=== PATIENT | female | born 1965 | race Caucasian/White ===

== ENCOUNTER 2017-06-10 06:52 | Day surgery (SDC) | payer BC, OTHER ==
[2017-06-09 13:18] VITALS: BMI 28.3
[2017-06-10] MEDS ORDERED: LIDOCAINE HCL 2% JELLY 10 ML CARTRIDGE ONE (08:58)
[2017-06-10 09:05] VITALS: TEMP 97.9
[2017-06-10] MEDS ORDERED: PROPOFOL 20 ML ONE ×7 (09:10→09:12)
[2017-06-10 09:49] VITALS: BP 110/67; PULSE 70
--- NOTE | 2017-06-11 12:55 | PATH ---
Surgical Pathology Report Patient Name: WENDIE BRIGGS [facility]. Rec. #: [id number] /Age/Gender: 1965 (Age: 51) / F Account: [id number] Location: [facility]-ENDOSCOPY Taken: 06/10/2017 Received: 06/10/2017 Reported: 06/11/2017 Physicians: Vidal Rees M.D. Specimen(s) Received TRANSVERSE COLON POLYP Clinical History Rectal bleeding Colon polyp/internal hemorrhoids Final Diagnosis COLON, TRANSVERSE, COLD SNARE POLYPECTOMY: TUBULAR ADENOMA. Comment: Recommend correlation with clinical findings and follow up as clinically indicated. Electronically Signed Fidencio Smalls M.D. Gross Description Received in formalin, labeled "cold snare transverse colon polyp" are 2 kinney, irregular portions of soft tissue measuring 0.2-0.4 cm. in greatest dimension. The specimens are submitted in toto in one cassette. [facility]/06/10/2017 [facility]/06/10/2017
== END 2017-06-10 09:57 | disposition home or self-care (01) ==
LOC: JASU-ENDO 06:52
PROVIDERS: ATTEND Internal Medicine Gastroenterology
PROC: 06LY4CC Occlusion of Hemorrhoidal Plexus with Extraluminal Device, Percutaneous Endoscopic Approach (ICD-10-PCS; 2017-06-10)
PROC: 0DBL8ZX Excision of Transverse Colon, Via Natural or Artificial Opening Endoscopic, Diagnostic (ICD-10-PCS; 2017-06-10)
PROC: 0W3P8ZZ Control Bleeding in Gastrointestinal Tract, Via Natural or Artificial Opening Endoscopic (ICD-10-PCS; principal; 2017-06-10 09:00)
DX: K64.8 Other hemorrhoids (principal); D12.3 Benign neoplasm of transverse colon
CPT/HCPCS: 84703; 88305-TC

== ENCOUNTER 2020-07-04 04:58 | Day surgery (SDC) | payer BC, OTHER ==
[2020-07-03 12:41] VITALS: BMI 29.0
[2020-07-04] MEDS ORDERED: LIDOCAINE HCL 2% JELLY 10 ML CARTRIDGE ONE (08:19)
[2020-07-04] MEDS ORDERED: ACETAMINOPHEN 325 MG TABLET (FP) ONE (08:52)
[2020-07-04 09:41] VITALS: BP 125/75; PULSE 71; TEMP 97.1
--- NOTE | 2020-07-05 14:26 | PATH ---
Surgical Pathology Report Patient Name: WENDIE BRIGGS [facility]. Rec. #: [id number] /Age/Gender: 1965 (Age: 54) / F Account: [id number] Location: [facility]-ENDOSCOPY Taken: 07/04/2020 Received: 07/04/2020 Reported: 07/05/2020 Physicians: Vidal Rees M.D. Specimen(s) Received RIGHT COLON BIOPSY Clinical History Rectal bleeding Postoperative diagnosis: Right colon polyp biopsy Final Diagnosis COLON, RIGHT, POLYP, BIOPSY: POLYPOID COLONIC MUCOSA WITH SMALL LYMPHOID AGGREGATE AND SUPERFICIAL HYPERPLASTIC FEATURES. Electronically Signed Blanca Bailey M.D. Gross Description Received in formalin, labeled "right colon polyp biopsy" are 2 kinney, irregular portions of soft tissue measuring 0.2 and 0.3 cm. in greatest dimension. The specimens are submitted in toto in one cassette. /07/04/2020 [place]07/04/2020
== END 2020-07-04 10:10 | disposition home or self-care (01) ==
LOC: JASU-ENDO 04:58
PROVIDERS: ATTEND Internal Medicine Gastroenterology
PROC: 06LY4CC Occlusion of Hemorrhoidal Plexus with Extraluminal Device, Percutaneous Endoscopic Approach (ICD-10-PCS; 2020-07-04)
PROC: 0DBF8ZX Excision of Right Large Intestine, Via Natural or Artificial Opening Endoscopic, Diagnostic (ICD-10-PCS; principal; 2020-07-04 08:00)
DX: K62.5 Hemorrhage of anus and rectum (principal); K64.8 Other hemorrhoids; K63.5 Polyp of colon
CPT/HCPCS: 81025; 88305-TC